=== PATIENT | female | born 1975 | race Caucasian/White ===

== ENCOUNTER 2021-04-01 20:47 | Emergency (ER) | payer OTHER, SELFPAY ==
[2021-04-01 20:49] VITALS: BP 152/74; PULSE 70; RESP 15; TEMP 36.7; O2SAT 98; BMI 26.0
--- NOTE | 2021-04-01 21:33 | CT_ITS ---
STUDY: CT ABDOMEN AND PELVIS WITH CONTRAST REASON FOR EXAM: Female, 45 years old. abd pain -- IV PO Contrast RADIATION DOSAGE (If Supplied By Facility): CTDIvol = ( 16.66 ) mGy, DLP = ( 994.42 ) mGycm TECHNIQUE: Transaxial images were obtained from the dome of the diaphragm to the symphysis pubis with oral contrast. Oral and amp; IV Gastrografin and amp; 100mL Isovue-300 was administered. Sagittal and coronal images were reconstructed. Individualized dose optimization techniques were used for this CT. COMPARISON: None. FINDINGS: The visualized lung bases are unremarkable. The visualized portions of the heart are within normal limits. Small amount of periportal edema. Small right liver lobe cyst. Otherwise, unremarkable liver. Normal gallbladder and extrahepatic biliary system. Normal spleen. Normal pancreas. Normal bilateral adrenal glands. Right lower pole nephrolith measuring 4.9 mm with small subjacent 1.5 cm cyst. Otherwise, unremarkable right kidney. Left kidney is within normal limits outside of punctate 3 mm nonobstructing left lower pulmonary. Postsurgical changes of the stomach was small hiatal hernia. Normal small intestine. Prominent gas distended loops of large bowel, predominantly the right colon and transverse colon. No discrete transition point is noted. There is non-visualization of the appendix. Normal abdominal aorta. Normal inferior vena cava. Normal retroperitoneum. Normal urinary bladder. Normal visualized uterus. Normal abdominal wall. Normal osseous structures. CT/Abdomen/Pelvis WITH Contrast IMPRESSION: Prominent gaseous distended right hemicolon and transverse colon. Unremarkable small bowel. Nonvisualized appendix. No discrete transition point. Enteritis cannot be excluded. Mild periportal edema in the liver. Nonspecific finding. Postsurgical changes of the stomach. Nonobstructing bilateral nephroliths Electronically Signed: Alex Avitia DO at 0:22 EDT Tel , Service support ,
[2021-04-01] MEDS: Morphine 4 MG/ML Syringe IV (21:52)
[2021-04-01] MEDS: Ondansetron 4 MG/2 ML Vial IV (21:52)
[2021-04-01] MEDS: 0.9% Normal Saline 1,000 ML 1000 ML IV (21:54)
[2021-04-01 21:55] LABS: Absolute Neutrophil Count 6.6 X10^3/uL (2.0-7.7); Basophil# 0.03 X10^3/uL; Basophil% 0.4 % (0-1); Eosinophil# 0.07 X10^3/uL; Eosinophils% 0.8 % (0-5); Hematocrit 35.7 % (37-47); Hemoglobin 11.3 g/dL (12.0-15.0); Lymphocyte % 12.1 % (19-41); Mean Corp Hgb Conc 31.7 g/dL (32-36); Mean Corpuscular Hgb 29.8 pg (27.0-32.0); Mean Corpuscular Volume 94.2 fL (81-99); Mean Platelet Vol. 10.9 fl (6.2-12.0); Monocyte# 0.52 X10^3/uL; Monocyte% 6.3 % (0-10); NRBC Flagged by Analyzer 0 % (0-5); Neutrophil # 6.64 X10^3/uL (2.7-7.7); Platelet Count 219 K/mm3 (150-450); RBC Distribution Width CV 14.3 % (11.6-14.6); RBC Distribution Width SD 49.7 fl (35.1-43.9); Red Blood Count 3.79 M/mm3 (4.2-5.4); White Blood Count 8.3 K/mm3 (4.4-11.0)
--- NOTE | 2021-04-01 21:57 | EDS_ITS ---
HPI History of Present Illness Chief Complaint: Abd Pain Informant: patient Narrative Narrative: 45-year-old female presented with abdominal pain. She states this started this afternoon. She complains of diffuse abdominal pain. She had a normal bowel movement and did not have improvement of her pain. She denies vomiting. She has history of gastric bypass June 2020. She denies fever. Denies urinary complaints. Denies other complaints. Prior similar symptoms: Yes Recent Illness/Hospitalization: No PFSH PFSH Medical History (Updated 04/02/21 @ 00:[address] Kathryn Moura MD) Anxiety Arthritis Depression Hypercholesteremia Hypertension Hypothyroidism Labral tear of left hip joint Home Medications atorvastatin [Lipitor] 20 mg PO QHS 04/01/21 [History Last Taken Unknown] buspirone 15 mg PO BID 04/01/21 [History Last Taken Unknown] levothyroxine 112 mcg PO DAILY 04/01/21 [History Last Taken Unknown] metoprolol succinate 25 mg PO DAILY 04/01/21 [History Last Taken Unknown] sertraline [Zoloft] 50 mg PO DAILY 04/01/21 [History Last Taken Unknown] sulfasalazine 1 g PO BID 04/01/21 [History Last Taken Unknown] Allergy/AdvReac Type Severity Reaction Status Date / Time No Known Allergies Allergy Verified 04/01/21 20:48 Surgical History (Updated 04/01/21 @ 22:04 by Renée Silverio) Gastric bypass status for obesity S/P left knee arthroscopy S/P left knee surgery Social History Smoking Status: Never smoker ROS ROS ED Constitutional Constitutional ED: Denies fever(s) Eyes Eyes: Denies change in vision ENT ENT ED: Denies rhinorrhea or sore throat Cardiovascular Cardiovascular: Denies chest pain or palpitations Respiratory/Chest Respiratory/Chest: Denies cough or dyspnea Gastrointestinal Gastrointestinal: Reports abdominal pain; Denies diarrhea, nausea or vomiting Genitourinary Genitourinary ED: Denies dysuria Musculoskeletal Musculoskeletal: Denies myalgias Integumentary Denies rash Neurologic Neurologic: Denies headache(s) Psychiatric Psychiatric: Denies suicidal thoughts EXAM Physical Exam Const Vital Signs: 04/01/21 20:49 Temperature 98.0 F Temperature Source Oral Pulse Rate 70 Respiratory Rate 15 Blood Pressure 152/74 H Blood Pressure Mean 100 Pulse Ox 98 Oxygen Delivery Method Room Air Positive well nourished and well developed General Appearance ED: well developed HEENT Reports normocephalic and head/scalp atraumatic Eyes PERRL and EOMs intact bilaterally Neck supple General: Negative for tenderness Chest Wall inspection of chest normal Resp normal respiratory effort and clear to auscultation bilaterally Cardio regular rate and regular rhythm GI non-distended GI Narrative: Diffuse abdominal tenderness, no guarding or rebound Palpation: soft and tender; Negative for guarding or rebound tenderness present no CVA tenderness Extremity normal to inspection Neuro oriented x3 Sensorium / Orientation: alert Psych mental status grossly normal MDM MDM MDM Narrative Medical decision making narrative: Patient was given morphine, Zofran, IV fluids. Labs are unremarkable. CT abdomen pelvis is pending at this time. She initially had improvement of her pain and the pain started to return. She was given an initial dose of morphine. Patient will be checked out to oncoming physician. Lab Data Attestation: I reviewed the patient's lab results. Labs: Laboratory Results - last 24 hr 04/01/21 04/01/21 04/01/21 21:45 21:45 22:30 WBC 8.3 RBC 3.79 L Hgb 11.3 L Hct 35.7 L MCV 94.2 MCH 29.8 MCHC 31.7 L RDW Std Deviation 49.7 H RDW Coeff of Manuel 14.3 Plt Count 219 MPV 10.9 Immature Gran % (Auto) 0.400 Neut % (Auto) 80.0 H Lymph % (Auto) 12.1 L Wilson % (Auto) 6.3 Eos % (Auto) 0.8 Baso % (Auto) 0.4 Absolute Neuts (auto) 6.6 Absolute Lymphs (auto) 1.00 Nucleated RBC % 0 Sodium 142 Potassium 3.4 L Chloride 109 H Carbon Dioxide 25.0 Anion Gap 8 BUN 6 L Creatinine 0.68 Estim Creat Clear Calc 88.32 Est GFR (MDRD) Af Amer 118 Est GFR (MDRD) Non-Af 98 BUN/Creatinine Ratio 8.8 L Glucose 105 Calcium 8.6 Total Bilirubin 0.50 AST 16 ALT 25 Alkaline Phosphatase 123 H Troponin I High Sens 6.4 Total Protein 6.9 Albumin 3.5 Globulin 3.4 Albumin/Globulin Ratio 1.0 Lipase 35 L Urine Color Yellow Urine Clarity Clear Urine pH 8.0 Ur Specific [place] 1.015 Urine Protein Negative Urine Glucose (UA) Normal Urine Ketones Negative Urine Occult Blood Negative Urine Nitrite Negative Urine Bilirubin Negative Urine Urobilinogen Normal Ur Leukocyte Esterase 100 H Urine RBC 0 SEEN Urine WBC 0-5 SEEN Ur Squamous Epith Cells 0-5 SEEN Urine Bacteria 0 SEEN Urine Mucus 0 SEEN Discharge Plan Triage Chief Complaint: Abd Pain ED Provider: Kathryn Moura Dx/Rx/DC Orders Clinical Impression: Abdominal pain Prescriptions: No Action atorvastatin [Lipitor] 20 mg Tablet 20 mg PO QHS RF: 0 sulfasalazine 500 mg Tablet 1 g PO BID RF: 0 metoprolol succinate 25 mg Tablet Extended Release 24 Hr 25 mg PO DAILY RF: 0 buspirone 15 mg Tablet 15 mg PO BID RF: 0 levothyroxine 112 mcg Capsule 112 mcg PO DAILY RF: 0 sertraline [Zoloft] 50 mg Tablet 50 mg PO DAILY RF: 0 Primary Care Provider: Cory Flores NP Referrals: Cory Flores NP, SAT ACT INSTRUCTOR-C [Primary Care Provider] -
[2021-04-01 22:25] LABS: AST(SGOT) 16 U/L (15-37); Alanine Aminotransfer ALT/SGPT 25 U/L (13-56); Albumin, Serum 3.5 g/dL (3.2-5.0); Alkaline Phosphatase 123 U/L (45-117); Anion Gap 8 (5-15); BUN 6 mg/dL (7-18); BUN/Creat Ratio 8.8 RATIO (10-20); Calcium,Total 8.6 mg/dL (8.5-10.1); Chloride 109 mmol/L (98-107); Creatinine, Serum 0.68 mg/dL (0.55-1.02); EST Glomerular Filtration Rate 98 mL/min (>60); Est Glom Filt Rate - Afr Amer 118 mL/min (>60); Estimated Creatinine Clearance 88.32 ml/min; Globulin 3.4 g/dL (2.2-4.2); Glucose 105 mg/dL (74-106); Lipase 35 U/L (73-393); Potassium 3.4 mmol/L (3.5-5.1); Protein, Total 6.9 g/dL (6.4-8.2); Sodium Level 142 mmol/L (136-145); Troponin-I HS 6.4 pg/mL (3.0-53.7)
[2021-04-01 22:36] LABS: Bacteria 0 SEEN /hpf (None Seen); Color, Urine Yellow (Yellow); Glucose, Dipstick Normal (Normal); Ketone-Dipstick Negative (Negative); Leukocyte Esterase-Dipstick 100 /ul (Negative); Mucous, Urine 0 SEEN /hpf (<or=2+); Nitrite-Dipstick Negative (Negative); Occult Blood-Urine Negative /ul (Negative); Protein-Dipstick Negative (Negative); Red Blood Cells-Urine 0 SEEN /hpf (0-5); Specific Gravity, Urine 1.015 (1.002-1.030); Urine Bilirubin Dipstick Negative (Negative); Urine Clarity Clear (Clear); Urine Urobilinogen Normal (Normal)
[2021-04-01 22:50] LABS: Squamous Epithelial Cells - UA 0-5 SEEN /hpf (5-10); White Blood Cells 0-5 SEEN /hpf (0-5)
[2021-04-02] MEDS: Morphine 4 MG/ML Syringe IV (00:20)
[2021-04-02 00:21] VITALS: BP 145/70; PULSE 72; RESP 18; O2SAT 99
--- NOTE | 2021-04-02 01:41 | EDS_ITS ---
HPI History of Present Illness Chief Complaint: Abd Pain [facility] Medical History (Updated 04/02/21 @ 00:[address] Kathryn Moura MD) Anxiety Arthritis Depression Hypercholesteremia Hypertension Hypothyroidism Labral tear of left hip joint Home Medications atorvastatin [Lipitor] 20 mg PO QHS 04/01/21 [History Last Taken Unknown] buspirone 15 mg PO BID 04/01/21 [History Last Taken Unknown] levothyroxine 112 mcg PO DAILY 04/01/21 [History Last Taken Unknown] metoprolol succinate 25 mg PO DAILY 04/01/21 [History Last Taken Unknown] sertraline [Zoloft] 50 mg PO DAILY 04/01/21 [History Last Taken Unknown] sulfasalazine 1 g PO BID 04/01/21 [History Last Taken Unknown] Allergy/AdvReac Type Severity Reaction Status Date / Time No Known Allergies Allergy Verified 04/01/21 20:48 Surgical History (Updated 04/01/21 @ 22:04 by Renée Silverio) Gastric bypass status for obesity S/P left knee arthroscopy S/P left knee surgery Social History Smoking Status: Never smoker EXAM Physical Exam Const Vital Signs: 04/01/21 20:49 04/02/21 00:21 Temperature 98.0 F Temperature Source Oral Pulse Rate 70 72 Respiratory Rate 15 18 Blood Pressure 152/74 H 145/70 H Blood Pressure Mean 100 95 Pulse Ox 98 99 Oxygen Delivery Method Room Air Room Air MDM MDM MDM Narrative Medical decision making narrative: Patient signed out to me pending CT scan abdomen pelvis. Patient status post gastric bypass this past June. Results of CT scan notes nonspecific distention right colon transverse colon. Also reported mild periportal edema of the liver nonspecific. Patient labs are all normal. Rediscussed with patient slightly nauseous earlier however no vomiting or diarrhea. She is currently feeling much better. Reexamining of her abdomen was soft and nontender. Discussed with patient nonspecific finding at this time . There is no signs of obstruction. No clinical evaluation for concerns of any volvulus. Discussed with patient to monitor for expectant bowel gas. She states she is more bloated earlier which is improved. Currently with improved symptoms I do feel she is safe for discharge. However discussed strict return precautions. All questions were answered. Lab Data Labs: Laboratory Results - last 24 hr 04/01/21 04/01/21 04/01/21 21:45 21:45 22:30 WBC 8.3 RBC 3.79 L Hgb 11.3 L Hct 35.7 L MCV 94.2 MCH 29.8 MCHC 31.7 L RDW Std Deviation 49.7 H RDW Coeff of Manuel 14.3 Plt Count 219 MPV 10.9 Immature Gran % (Auto) 0.400 Neut % (Auto) 80.0 H Lymph % (Auto) 12.1 L [place] % (Auto) 6.3 Eos % (Auto) 0.8 Baso % (Auto) 0.4 Absolute Neuts (auto) 6.6 Absolute Lymphs (auto) 1.00 Nucleated RBC % 0 Sodium 142 Potassium 3.4 L Chloride 109 H Carbon Dioxide 25.0 Anion Gap 8 BUN 6 L Creatinine 0.68 Estim Creat Clear Calc 88.32 Est GFR (MDRD) Af Amer 118 Est GFR (MDRD) Non-Af 98 BUN/Creatinine Ratio 8.8 L Glucose 105 Calcium 8.6 Total Bilirubin 0.50 AST 16 ALT 25 Alkaline Phosphatase 123 H Troponin I High Sens 6.4 Total Protein 6.9 Albumin 3.5 Globulin 3.4 Albumin/Globulin Ratio 1.0 Lipase 35 L Urine Color Yellow Urine Clarity Clear Urine pH 8.0 Ur Specific [place] 1.015 Urine Protein Negative Urine Glucose (UA) Normal Urine Ketones Negative Urine Occult Blood Negative Urine Nitrite Negative Urine Bilirubin Negative Urine Urobilinogen Normal Ur Leukocyte Esterase 100 H Urine RBC 0 SEEN Urine WBC 0-5 SEEN Ur Squamous Epith Cells 0-5 SEEN Urine Bacteria 0 SEEN Urine Mucus 0 SEEN Radiography Diagnostic Testing: Radiology Impression Abdomen/Pelvis CT 04/01/21 21:33 IMPRESSION: Prominent gaseous distended right hemicolon and transverse colon. Unremarkable small bowel. Nonvisualized appendix. No discrete transition point. Enteritis cannot be excluded. Mild periportal edema in the liver. Nonspecific finding. Postsurgical changes of the stomach. Nonobstructing bilateral nephroliths Electronically Signed: Alex Avitia DO at 0:22 EDT Tel , Service support , Discharge Plan Triage Chief Complaint: Abd Pain ED Provider: Kathryn Moura Dx/Rx/DC Orders Clinical Impression: Abdominal pain Instructions: Abdominal Pain Prescriptions: No Action atorvastatin [Lipitor] 20 mg Tablet 20 mg PO QHS RF: 0 sulfasalazine 500 mg Tablet 1 g PO BID RF: 0 metoprolol succinate 25 mg Tablet Extended Release 24 Hr 25 mg PO DAILY RF: 0 buspirone 15 mg Tablet 15 mg PO BID RF: 0 levothyroxine 112 mcg Capsule 112 mcg PO DAILY RF: 0 sertraline [Zoloft] 50 mg Tablet 50 mg PO DAILY RF: 0 Primary Care Provider: Cory Flores NP Referrals: Cory Flores NP, STRUCTURAL ENGINEERING DRAFTING OFFICER-C [Primary Care Provider] - 3-5 Days Activity Restrictions/Additional Instructions: Nonspecific distention of your large bowels. Monitor and expect continued bowel gas. If any worsening symptoms return to the ED. Disposition Disposition: Home, Self Care
== END 2021-04-02 01:51 | disposition home or self-care (01) ==
PROVIDERS: Emergency Provider Emergency Medicine; PCP Nurse Practitioner Family
DX: R10.9 Unspecified abdominal pain (principal); I10 Essential (primary) hypertension; E03.9 Hypothyroidism, unspecified; E78.00 Pure hypercholesterolemia, unspecified; F32.9 Major depressive disorder, single episode, unspecified; F41.9 Anxiety disorder, unspecified; M19.90 Unspecified osteoarthritis, unspecified site; Z98.84 Bariatric surgery status; Z79.899 Other long term (current) drug therapy
CPT/HCPCS: 74177; 80053; 81001; 83690; 84484; 85025; 96361; 96374; 96375; 96376; 99283; J7030; Q9967; A4216; J2405

== ENCOUNTER → 2023-01-09 | Outpatient (CLI) | payer OTHER, SELFPAY ==
--- NOTE | 2023-01-09 09:47 | CT_ITS ---
STUDY: CT ABDOMEN AND PELVIS WITHOUT CONTRAST REASON FOR EXAM: Female, 47 years old. Kidney stone RADIATION DOSAGE (If Supplied By Facility): CTDIvol = ( 7.69 ) mGy, DLP = ( 341.91 ) mGycm TECHNIQUE: Transaxial images were obtained from the dome of the diaphragm to the symphysis pubis without oral contrast, and without intravenous contrast. Sagittal and coronal images were reconstructed. Individualized dose optimization techniques were used for this CT. COMPARISON: 04/01/2021 FINDINGS: Evaluation of the abdominal viscera is limited in the absence of intravenous contrast. LOWER THORAX: The visualized lung bases are clear. The visualized portions of the heart and pericardium are within normal limits. GALLBLADDER / BILE DUCTS: There are no calcified gallstones present. There is no intrahepatic biliary duct dilatation. The common bile duct is normal in caliber. There are no calcified ductal stones. LIVER: The liver demonstrates an unremarkable unenhanced appearance. SPLEEN: The spleen is normal in size. PANCREAS: The pancreas demonstrates an unremarkable unenhanced appearance. ADRENAL GLANDS: The adrenal glands are within normal limits. KIDNEYS / BLADDER: There are nonobstructing stones in the collecting system of the left kidney, measuring up to 5 mm. There are no additional renal or ureteral stones. There is no hydronephrosis. There are no focal renal lesions identified on this noncontrast exam. The urinary bladder is partially distended and appears grossly unremarkable. STOMACH / BOWEL: The patient is status post gastric bypass. There is no bowel obstruction or inflammation. There is a large amount of stool in the colon, consistent with constipation. The appendix is not visualized, but there are no findings to suggest acute appendicitis. PERITONEUM / RETROPERITONEUM: There is no abdominal or pelvic free air, free fluid or fluid collection. There is a 4.3 x 3.4 cm right adnexal cyst. There is no abdominal or pelvic lymphadenopathy. VESSELS: The aorta is normal in caliber. The IVC is unremarkable. BONES: The patient is status post left hip arthroplasty. There are no destructive osseous lesions. SOFT TISSUES: The visualized soft tissues are within normal limits. CT/Abdomen/Pelvis without Cont IMPRESSION: Subcentimeter nonobstructing left renal collecting system stones. No additional urinary calculi. No hydronephrosis. No bowel obstruction or inflammation. Constipation. 4.3 x 3.4 cm right adnexal cyst. If indicated, a follow-up ultrasound can be performed. Electronically Signed: Junior Parekh MD at 9:32 EDT ,
== END | disposition home or self-care (01) ==
PROVIDERS: PCP Nurse Practitioner Family; Referring Provider Urology; Visit Provider Urology
DX: N20.0 Calculus of kidney (principal)
CPT/HCPCS: 74176

== ENCOUNTER → 2023-01-12 | Outpatient (CLI) | payer OTHER, SELFPAY ==
--- NOTE | 2023-01-12 15:06 | RAD_ITS ---
INDICATION: KUB- KIDNEY STONE EXAMINATION/TECHNIQUE: X-RAY - XR Abdomen 1 View COMPARISON: CT abdomen and pelvis 01/09/2023 FINDINGS: BOWEL GAS PATTERN: Non-obstructive. Significant colonic fecal retention. FREE AIR: Not assessed on a single supine view. ORGANOMEGALY: Not seen. CALCIFICATIONS: Known left renal calculi not visualized on current images with extensive overlying bowel gas and fecal contents. LOWER CHEST: No acute pathology. BONES AND SOFT TISSUES: No acute pathology. RAD/Abdomen Single View IMPRESSION: No radiopaque urinary calculi. Electronically Signed: Earnest Byrnes MD at 22:33 EDT ,
== END | disposition home or self-care (01) ==
LOC: MTRAD 15:05
PROVIDERS: PCP Nurse Practitioner Family; Referring Provider Urology; Visit Provider Urology
DX: N20.0 Calculus of kidney (principal)
CPT/HCPCS: 74018

== ENCOUNTER → 2023-01-22 | Outpatient (CLI) | payer OTHER, SELFPAY ==
--- NOTE | 2023-01-22 15:31 | RAD_ITS ---
EXAM: XR ABDOMEN, 1 VIEW CLINICAL INDICATION: KUB- L STONE TECHNIQUE: Frontal supine view of the abdomen/pelvis. COMPARISON: No relevant prior studies available. FINDINGS: LOWER THORAX: No acute pathology. GASTROINTESTINAL TRACT: Surgical clips over the expected region of the GE junction. Moderate gas in the stomach. ORGANS: Unremarkable as visualized. No organomegaly. No abnormal calcifications. BONES/JOINTS: Left hip prosthesis. No suspicious bone lesions. Colon, moderate gas in the splenic flexure, mild gas in the rectosigmoid. No dilated small bowel loops. SOFT TISSUES: No acute pathology. OTHER FINDINGS: Moderate gas and stool in the right. RAD/Abdomen Single View IMPRESSION: 1. No convincing urinary tract stone identified. Slight calcific opacities on the left at the level of L2 may be nephrolithiasis. 2. Postoperative changes. Electronically Signed: Evangelina Kim MD at 9:27 EDT ,
== END | disposition home or self-care (01) ==
LOC: MTRAD 15:31
PROVIDERS: PCP Nurse Practitioner Family; Referring Provider Urology; Visit Provider Urology
DX: N20.0 Calculus of kidney (principal)
CPT/HCPCS: 74018

== ENCOUNTER 2023-02-25 13:16 | Day surgery (SDC) | payer OTHER, SELFPAY ==
[2023-02-25] VITALS (7 sets, daily range): BP systolic 110–149; BP diastolic 59–86; PULSE 60–118; RESP 14–18; TEMP 36.5–37.2; O2SAT 99–100; BMI 23.8
[2023-02-25] MEDS: Lactated Ringers 1,000 ML 15 ML IV (13:51)
[2023-02-25 13:58] LABS: Internal QC Validated? YES +Cl - CLEAR BKGD; Pregnancy, Urine Negative Negative
[2023-02-25] MEDS: Cefazolin 2 GM in 0.9% Normal Saline 100 ML IV (14:33)
--- NOTE | 2023-02-25 14:59 | PCM.OPRPT ---
Problems Associated Problem List Diagnoses (1) Kidney stones: Report of Operation Date of Procedure: 02/25/23 Pre-Operative Diagnosis: Left renal calculi Post-Operative Diagnosis: Same Surgery/Procedure Performed:: Left renal extracorporal shockwave lithotripsy Surgeon: Fariba Sinclair Type of Anesthesia: General Description of Procedure: The patient is a 47-year-old female found to have left renal stones and now presents for definitive surgical intervention. Informed consent was obtained. The patient was taken to the operating room and placed on the operating room table. Anesthesia monitored the head, neck, airway, IV access and vital signs throughout the case. Once anesthesia was appropriately ministered, the patient was aligned with the lithotripter. The stones were easily visualized. 3000 shocks were applied to the stones which appeared to be well fragmented at the conclusion of the case. The patient was then awakened and taken to the recovery room in good condition. There were no complications during this procedure. Grafts/Implants Used: None Complications None Admit VTE Documentation VTE Present on Admission: Yes VTE Mechan Device Prophylaxis: SCD's VTE Pharm Prophylaxis ordered?: No Reason prophylaxis not ordered:: Treatment Not Indicated
--- NOTE | 2023-02-25 15:01 | DCINST_ITS ---
Discharge Instructions Diet Discharge Diet: No restrictions Activity Discharge Activity: Return to Normal Activity Dressing / Incision Call your doctor if you observe: Fever of 101 or Higher, Inability to urinate and Inability to have a bowel movement Follow Up Care Please Follow Up With: Fariba Sinclair MD When: Call office for appointment to be seen in 2 to 3 weeks with KUB Test Results: Test results from this visit will be discussed in further detail at your follow- up appointment, if applicable. Discharge Plan Admission Attending Provider: Fariba Sinclair Primary Care Provider: Cory Flores NP Discharge Orders/Prescriptions Prescriptions: New cephalexin [cephalexin] 500 mg capsule 500 mg PO Q12 3 Days Qty: 6 0RF oxycodone-acetaminophen [Percocet] 5-325 mg tablet 1 tab PO Q8H PRN (Reason: pain) 3 Days Qty: 10 0RF phenazopyridine [Pyridium] 200 mg tablet 200 mg PO TID PRN PRN (Reason: Bladder Spasms) 7 Days Qty: 30 0RF Continued atorvastatin [Lipitor] 20 mg Tablet 20 mg PO QHS sulfasalazine 500 mg Tablet 1 g PO BID metoprolol succinate 25 mg Tablet Extended Release 24 Hr 25 mg PO DAILY buspirone 15 mg Tablet 15 mg PO BID levothyroxine 112 mcg Capsule 112 mcg PO DAILY sertraline [Zoloft] 50 mg Tablet 50 mg PO DAILY Referrals / Follow Up: Cory Flores NP, TRANSMISSION CALIBRATION ENGINEER-C [Primary Care Provider] - Disposition Disposition (needs filled in before D/C Order can be placed): Home, Self Care
== END 2023-02-25 17:17 | disposition home or self-care (01) ==
LOC: SDC 13:22 → AC 13:33
PROVIDERS: Anesthesiology; PCP Nurse Practitioner Family; Referring Provider Urology; Visit Provider Urology
PROC: (CPT 50590; principal; 2023-02-25 14:45)
DX: N20.0 Calculus of kidney (principal); F41.9 Anxiety disorder, unspecified; F32.9 Major depressive disorder, single episode, unspecified; K21.9 Gastro-esophageal reflux disease without esophagitis; E78.00 Pure hypercholesterolemia, unspecified; Z87.442 Personal history of urinary calculi; I10 Essential (primary) hypertension; E03.9 Hypothyroidism, unspecified; Z98.84 Bariatric surgery status
CPT/HCPCS: 50590; 81025; J7120; J2405

== ENCOUNTER → 2023-03-12 | Outpatient (CLI) | payer OTHER, SELFPAY ==
--- NOTE | 2023-03-12 10:14 | RAD_ITS ---
STUDY: X-RAY - ABDOMEN/PELVIS REASON FOR EXAM: Female, 47 years old. KUB TECHNIQUE: Single AP view of the abdomen / pelvis. COMPARISON: 01/22/2023 FINDINGS: Gas in multiple loops of small bowel in a nonspecific bowel gas pattern. The visualized liver, spleen and kidneys are grossly normal in size and morphology. Normal soft tissue structures. Status post left hip arthroplasty. RAD/Abdomen Single View IMPRESSION: Nonspecific bowel gas pattern. No obvious renal or ureteral stone. Electronically Signed: Frandy Pacheco MD at 23:29 EDT ,
== END | disposition home or self-care (01) ==
LOC: MTRAD 10:13
PROVIDERS: PCP Nurse Practitioner Family; Referring Provider Urology; Visit Provider Urology
DX: N20.0 Calculus of kidney (principal)
CPT/HCPCS: 74018